=== PATIENT | male | born 1980 | race Caucasian/White ===

== ENCOUNTER 2019-05-31 15:00 | Emergency (ER) | payer MEDICAID, OTHER ==
[~2019-05-31] VITALS: Ht 175.3 cm; Wt 71.0 kg
[~2019-05-31 15:00] MED LIST: METH5TAB2 PO
[2019-05-31] MEDS ORDERED: TETANUS AND DIPHTHERIA TOX/PF 0.5ML SYR (ADULT) IM ONE (20:45)
[2019-05-31] MEDS ORDERED: IBUPROFEN 600MG TABLET PO ONE (20:45)
[2019-05-31] MEDS ORDERED: BACITRACIN ZINC OINT UDPKT TOP ONE (20:45)
[2019-05-31] MEDS ORDERED: HYDROCODONE/APAP 7.5/325MG 1 TAB TABLET PO ONE (20:45)
[2019-05-31] MEDS ORDERED: TETANUS, DIPHTHERIA, PERTUSSIS VAC/PF 0.5ML (>7YR OLD) IM ONE (21:15)
[2019-06-01 00:23] VITALS: BP 130/85
== END 2019-06-01 00:24 | disposition home or self-care (01) ==
LOC: ER 15:00
DX: S20.212A Contusion of left front wall of thorax, initial encounter (principal); S80.211A Abrasion, right knee, initial encounter; F11.10 Opioid abuse, uncomplicated; V13.4XXA Pedal cycle driver injured in collision with car, pick-up truck or van in traffic accident, initial encounter; Y93.89 Activity, other specified; Y92.488 Other paved roadways as the place of occurrence of the external cause
CPT/HCPCS: 73560; 90471; 90715; 99284; Z7610; 90714